=== PATIENT | male | born 1995 | race African-American/Black ===

== ENCOUNTER 2017-03-25 15:45 | Emergency (ER) | payer OTHER ==
[~2017-03-25] VITALS: Ht 185.4 cm; Wt 68.0 kg
[2017-03-25 15:45] VITALS: BP 139/70; PULSE 62; RESP 16; TEMP 97.3; O2SAT 99
== END 2017-03-25 16:05 ==
LOC: SED 15:45
DX: Z02.89 Encounter for other administrative examinations (principal); J02.9 Acute pharyngitis, unspecified
CPT/HCPCS: 99283